=== PATIENT | female | born 1985 ===

== ENCOUNTER 2023-01-07 12:53 | Outpatient (CLI) | payer OTHER | END 2023-01-07 14:33 | disposition home or self-care (01) | LOC: PRENATAL 12:53 | PROVIDERS: ATTEND Obstetrics & Gynecology Maternal & Fetal Medicine | DX: O35.9XX0 Maternal care for (suspected) fetal abnormality and damage, unspecified, not applicable or unspecified (principal); O35.3XX0 Maternal care for (suspected) damage to fetus from viral disease in mother, not applicable or unspecified; O10.019 Pre-existing essential hypertension complicating pregnancy, unspecified trimester; Z3A.13 13 weeks gestation of pregnancy ==

== ENCOUNTER 2023-02-26 11:31 | Outpatient (CLI) | payer OTHER ==
[2023-02-26] MEDS ORDERED: INSULIN SYRING1 EA29 SUBCUTANEO (14:41)
[2023-02-26] MEDS ORDERED: HUMULIN N100 UNIT/2 SUBCUTANEO (14:41)
== END 2023-02-26 14:57 | disposition home or self-care (01) ==
LOC: PRENATAL 11:31
PROVIDERS: ATTEND Obstetrics & Gynecology Maternal & Fetal Medicine
DX: O35.3XX0 Maternal care for (suspected) damage to fetus from viral disease in mother, not applicable or unspecified (principal); O09.529 Supervision of elderly multigravida, unspecified trimester; O10.019 Pre-existing essential hypertension complicating pregnancy, unspecified trimester; O24.419 Gestational diabetes mellitus in pregnancy, unspecified control; O99.210 Obesity complicating pregnancy, unspecified trimester; O44.00 Complete placenta previa NOS or without hemorrhage, unspecified trimester; Z3A.20 20 weeks gestation of pregnancy